=== PATIENT | female | born 1975 | race Caucasian/White ===

== ENCOUNTER 2022-11-23 09:34 | Emergency (ER) | payer OTHER, SELFPAY ==
--- NOTE | ~2022-11-23 | XR_ITS ---
EXAMINATION: XR CHEST CLINICAL INFORMATION: Shortness of breath x3 weeks COMPARISON: 07/30/2018 TECHNIQUE: Frontal view of the chest was obtained. FINDINGS: Lungs are markedly hypoexpanded. Allowing for this, no significant abnormality is probably present. Heart size normal. No CHF. No consolidations or pleural effusions. XR/XR chest 1V IMPRESSION: Hypoexpanded lungs. No acute intrathoracic disease.
[2022-11-23 09:37] VITALS: BP 123/52; PULSE 84; RESP 18; TEMP 36.1; O2SAT 96; BMI 34.9
--- NOTE | 2022-11-23 10:11 | ED.URI ---
HPI - URI/Sore Throat General Chief Complaint: Upper Respiratory Symptoms Stated Complaint: cough Time Seen by Provider: 11/23/22 09:56 Source: patient Mode of arrival: ambulatory Limitations: language barrier History of Present Illness HPI Narrative: 47-year-old female past medical history of asthma presents to the emergency department with complaints of a nonproductive cough and shortness of breath for 21 days. She states symptoms began roughly 3 weeks ago, at the same time both her children were diagnosed with the flu, and began with a 3 day fever. She states that she was not tested for the flu at that time. She states her symptoms are exacerbated by cold air and deep breathing. She denies any current fevers, chills, nausea, vomiting, chest pain, headache, or vision changes. She denies any difficulty swallowing or sore throat. MD elicited complaint: cough Pertinent past history: asthma Onset (ago): day(s) () Consistency: constant Severity: moderate Able to tolerate fluids by mouth: Yes Exacerbating factors: deep breaths and other (cold air) Related Data Previous Rx's Medication Instructions Recorded albuterol sulfate 90 mcg/actuation 1 inh inhalation Q4-6H PRN 11/23/22 breath activated powder inhaler shortness of breath #1 ea amoxicillin 875 mg-potassium 1 tab PO BID 5 days #10 tabs 11/23/22 clavulanate 125 mg tablet benzonatate 100 mg capsule 100 mg PO TID PRN cough #14 caps 11/23/22 Allergies Allergy/AdvReac Type Severity Reaction Status Date / Time No Known Allergies Allergy Unknown Verified 11/23/22 09:45 Review of Systems Review of Systems: In addition to documented HPI above, the additional ROS was obtained: Constitutional: No Weight loss, No Fever, No Chills ENT/Mouth: No Ear Pain, No Nasal Congestion, No Sinus Pain, No Hoarseness, No sore throat, No Rhinorrhea, No Swallowing Difficulty Cardiovascular: No Chest Pain Respiratory: No Sputum, No Wheezing Gastrointestinal: No Nausea, No Vomiting, No Diarrhea, No Constipation, No Abdominal pain Genitourinary: No Dysuria, No Urinary Frequency, No Hematuria, No Urinary Incontinence/retention, No Urgency, No Flank Pain Musculoskeletal: No joint pain, No Myalgias, No Joint Swelling Skin: No Skin Lesions, No rash Neuro: No Weakness, No Numbness, No Paresthesias Yes all other systems are reviewed and are negative [facility] Past Medical History Attestation statement: The following information was validated with the patient. Source: old records reviewed Social History Social History Advance Directives: No Advance Directives Information Provided: No Physical Exam Vital Signs: Vital Signs: Last Vital Signs Temp 97.0 F 11/23/22 09:37 Pulse 76 11/23/22 11:42 Resp 16 11/23/22 11:42 BP 117/63 11/23/22 11:42 Pulse Ox 98 11/23/22 11:42 O2 Del Method 11/23/22 11:42 BMI result Body Mass Index 34.9 Nursing notes and vital signs reviewed. GENERAL APPEARANCE: A&0 x 4, generally well appearing, no acute distress HENMT: Normal to inspection, atraumatic, face symmetrical. Normal external ears, nose, and oropharynx clear. EYE: PERRLA, EOM intact, structures appear normal NECK: Supple without lymphadenopathy. No stiffness or restricted ROM. CHEST: Normal to inspection HEART: Normal rate and regular rhythm, normal S1/S2, no M/R/G LUNGS: LS CTA, moving air well. Able to speak in complete sentences. No crackles, wheezes, or rhonchi auscultated ABDOMEN: Soft, nontender, nondistended. Normal bowel sounds noted BACK: No CVAT, no obvious deformity EXTREMITIES: Moving all extremities without difficulty. No cyanosis, clubbing, or edema. Normal capillary refill. NEUROLOGICAL: Alert and oriented, moving all 4 extremities with equal strength. CN not formally tested but appearing grossly intact. Observed to ambulate with normal gait. Cognition normal SKIN: Warm and dry without any lesions, rash, or visible sores PSYCH: Cooperative, normal affect, normal thought process Medical Decision Making Medical Decision Making MDM Narrative: 47-year-old female past medical history of asthma presents to the emergency department with complaints of a nonproductive cough and shortness of breath for 21 days. She states symptoms began roughly 3 weeks ago, at the same time both her children were diagnosed with the flu, and began with a 3 day fever. She states that she was not tested for the flu at that time. She states her symptoms are exacerbated by cold air and deep breathing. LS CTA, A&O x4, DEL ANGEL equally with good strength.? Serology negative for influenza, COVID.? Chest x-ray with hypoexpanded lungs, negative for intrathoracic disease.? History, physical, and diagnostics consistent with bronchitis.? Low suspicion for ACS, PE, pneumonia, sepsis. Patient is safe for discharge at this time with plan to manage symptoms the [id number] Tylenol, Motrin, and/or cough/cold medication for relief of symptoms. Plan to for 5 day course of Augmentin and benzonatate capsules for relief of symptoms. HPI, PE, diagnostics, and plan discussed with patient and family with no unanswered questions at this time.? Patient educated to return to the emergency department with chest pain, increased shortness of breath, worsening cough, fever despite taking antipyretics, or any other concerning emergent symptoms.? Recommended to follow-up with her primary care provider for further treatment and management. *Refer to Course for additional information on consultations, diagnostic interpretation, consultations, emergency department stay, conversations with patient and family, shared decision making with patient, and more information on medical decision making* Lab Data MDM Lab Attestation statement: I reviewed the patient's lab results. Serology negative for influenza A/B and Covid. Labs: Lab Results 11/23/22 11/23/22 Range/Units 10:16 10:16 COVID-19 (JANN) Negative (Negative) COVID-19 Clin Com See Note Influenza Type A (ELTON) Negative (Negative) Influenza Type B (ELTON) Negative (Negative) Influenza A & B Note See Note Radiology Impression Discussion of test interpretation with radiology: I have reviewed the radiologist's reading. Radiologist Impression: I have independently reviewed the chest x-ray show expanded lungs and no acute intrathoracic disease. EXAMINATION: XR CHEST CLINICAL INFORMATION: Shortness of breath x3 weeks COMPARISON: 07/30/2018 TECHNIQUE: Frontal view of the chest was obtained. FINDINGS: Lungs are markedly hypoexpanded. Allowing for this, no significant abnormality is probably present. Heart size normal. No CHF. No consolidations or pleural effusions. XR/XR chest 1V IMPRESSION: Hypoexpanded lungs. No acute intrathoracic disease. ? Dictated By: Magan Neri MD Signed By: <Electronically signed by Magan Neri MD in OV> 11/23/22 1126 DD/ 1013 TD/TT:? Construction Consultant: ESTELLA Discharge Plan Discharge Clinical Impression: Bronchitis Patient Disposition: Home, Self-Care Instructions: How to Use a Metered-Dose Inhaler (ED), Acute Bronchitis (ED), How Your Lungs Work (ED) Additional Instructions: Your throat and nasal swabs are negative for influenza and COVID.? Your chest x-ray is negative for pneumonia.? Your history, physical exam, and diagnostic exams are consistent with chronic bronchitis is you would have cough for greater than 3 weeks.? Plan is for a 5 day course of Augmentin, benzonatate capsules for cough, and a rescue inhaler for shortness of breath.? Please use these medications as prescribed. You are safe for discharge at this time with plan to manage symptoms the [id number] Tylenol, Motrin, and/or cough/cold medication for relief of symptoms. Plan to for 5 day course of Augmentin and benzonatate capsules for relief of symptoms. Please return to the emergency department with chest pain, increased shortness of breath, worsening cough, fever despite taking antipyretics, or any other concerning emergent symptoms.? Recommended to follow-up with her primary care provider for further treatment and management. Prescriptions: New amoxicillin-pot clavulanate 875-125 mg tablet 1 tab PO BID 5 Days Qty: 10 0RF benzonatate 100 mg capsule 100 mg PO TID PRN (Reason: cough) Qty: 14 0RF albuterol sulfate 90 mcg/actuation aerosol powdr breath activated 1 inh inhalation Q4-6H PRN (Reason: shortness of breath) Qty: 1 0RF Referrals: Sydney Aguilar MD [Primary Care Provider] - Interventions: ED Discharge Assessment Last Done: 11/23/22 12:19 Discharge Date/Time: 11/23/22 12:19 Print Language: Nepalese
--- NOTE | 2022-11-23 10:15 | PC.NURSE ---
Xray at bedside . patient aware of plan of care .
[2022-11-23 10:37] LABS: COVID-19 Test Negative (Negative); IDNOW Serial# 55D5AD1C
[2022-11-23 10:38] LABS: IDNOW Serial# 9DB6401D; Influenza A Negative (Negative); Influenza B2 Negative (Negative)
--- NOTE | 2022-11-23 11:30 | PC.NURSE ---
patients primary language Belarusian , patient assessed with use of medical manager . a/ox4 . heart rate regular at 80 beats per minute . breathing even and unlabored . lunges diminished throughout . dry non productive cough . Xray done at bedside . skin pink warm and dry . patient aware of plan of care .
[2022-11-23 11:42] VITALS: BP 117/63; PULSE 76; RESP 16; O2SAT 98
--- NOTE | 2022-11-23 12:17 | PC.NURSE ---
Patient a/ox4 . VSS . Went over discharge instructions as ordered by provider. patient to return to Ed if symptoms worsen no questions at this time .
== END 2022-11-23 12:19 | disposition home or self-care (01) ==
PROVIDERS: Nurse Practitioner Family; Emergency Provider Student in an Organized Health Care Education/Training Program; PCP Internal Medicine
DX: J40 Bronchitis, not specified as acute or chronic (principal); R05.9 Cough, unspecified; R06.02 Shortness of breath; Z20.828 Contact with and (suspected) exposure to other viral communicable diseases; Z20.822 Contact with and (suspected) exposure to COVID-19
CPT/HCPCS: 71045; 87502; 87635; 99283

== ENCOUNTER 2024-01-31 08:21 | Emergency (ER) | payer OTHER, SELFPAY ==
[2024-01-31 08:28] VITALS: BP 152/81; PULSE 85; RESP 16; TEMP 36.2; O2SAT 98; BMI 36.4
--- NOTE | 2024-01-31 09:30 | ED.EXTPRO ---
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 Patient states that she has had this pain for 2 months. Patient states that the pain is worse when she bends over. Patient states that the pain is better when her partner massages the area. Patient states that she was prescribed a muscle relaxer which helped but made her too sleepy. Patient denies any dizziness, lightheadedness, abdominal pain, nausea, vomiting, fever, chills, blurry vision, double vision, loss of vision, chest pain, difficulty breathing, shortness of breath, night sweats, pain with urination, increased urinary frequency, increased urinary urgency, blood in her urine or stool, syncope or a near syncopal episode, recent trauma or falls, bowel incontinence, bladder incontinence, bowel retention, bladder retention, or any other complaints at this time. Onset (ago): month(s) (2) Severity scale (1-10): 3 Quality: aching Radiation: none Relieving factors: medication Exacerbating factors: range of motion Associated symptoms: denies other symptoms Related Data Previous Rx's Medication Instructions Recorded albuterol sulfate 90 mcg/actuation 1 inh inhalation Q4-6H PRN 11/23/22 breath activated powder inhaler shortness of breath #1 ea amoxicillin 875 mg-potassium 1 tab PO BID 5 days #10 tabs 11/23/22 clavulanate 125 mg tablet benzonatate 100 mg capsule 100 mg PO TID PRN cough #14 caps 11/23/22 prednisone 20 mg tablet 20 mg PO DAILY 7 days #7 tabs 01/31/24 Allergies Allergy/AdvReac Type Severity Reaction Status Date / Time No Known Allergies Allergy Unknown Verified 11/23/22 09:45 Review of Systems Constitutional: Constitutional: Reports no additional constitutional complaints, Denies chills, Denies fever(s) and Denies night sweats Eyes: Eyes: Reports no additional eye complaints, Denies blurry vision, Denies change in vision, Denies diplopia, Denies eye discharge, Denies loss of vision and Denies eye pain ENT: Denies dizziness Cardiovascular: Cardiovascular: Reports no additional cardiovascular complaints, Denies chest pain, Denies lightheadedness, Denies Loss of Consciousness and Denies dyspnea Respiratory: Respiratory: Reports no additional respiratory complaints and Denies dyspnea Gastrointestinal: Gastrointestinal: Reports no additional gastrointestinal complaints, Denies abdominal pain, Denies melena, Denies hematochezia, Denies change in bowel habits and Denies change in stool character Genitourinary: Genitourinary: Denies hematuria, Denies urinary frequency, Denies dysuria, Denies urinary incontinence, Denies urinary hesitancy and Denies urinary urgency Musculoskeletal: Musculoskeletal: Reports no additional musculoskeletal complaints, Reports back pain, Denies numbness and Denies tingling Neurologic: Denies dizziness, Denies loss of vision, Denies numbness and Denies tingling Psychiatric: Psychiatric: Reports no additional psychiatric complaints Endocrine: Endocrine: Reports no additional endocrine complaints Hematologic/Lymphatic: Hematologic/Lymphatic: Reports no additional hematologic/lymphatic complaints Allergic/Immunologic: Allergic/Immunologic: Reports no additional allergic/immunologic complaints PMFSH Past Medical History Attestation statement: The following information was validated with the patient. Source: old records reviewed and nursing notes reviewed Social History Social History Advance Directives: No Advance Directives Information Provided: No Physical Exam Vital Signs: Vital Signs: Last Vital Signs Temp 97.2 F 01/31/24 08:28 Pulse 85 01/31/24 08:28 Resp 16 01/31/24 08:28 BP 152/81 H 01/31/24 08:28 Pulse Ox 98 01/31/24 08:28 O2 Del Method Room Air 01/31/24 08:28 BMI result Body Mass Index 36.4 Const: General: cooperative, no acute distress, alert and awake Nutritional Appearance: well nourished Orientation/consciousness: patient oriented x3 Limitations: no limitations HEENT: Head: Yes normal to inspection and Yes atraumatic Ears: hearing grossly normal bilaterally and external ears normal General nose exam: Normal external nose present, no nasal discharge noted and no epistaxis Face and sinus: Yes normal facial exam, No abrasion and No laceration Mouth: Normal oral and palatal mucosa present, no drooling and no muffled voice Eyes: General: appearance normal, both eyes and all related structures Periorbital: periorbital findings normal Eyelids: Yes eyelids normal Conjunctivae: conjunctivae normal Pupils: Equal, round and reactive pupils present EOM: EOMs intact bilaterally Neck: Neck: Yes normal visual inspection, Yes full ROM and Yes no lymphadenopathy Chest: Chest palpation & inspection: normal inspection of the chest Resp: Effort & Inspection: normal respiratory effort and able to speak in complete sentences GI: Inspection: Yes normal to inspection : General: Yes no CVA tenderness Back/Spine/Pelvis: Back: no CVA tenderness Cervical Spine: normal cervical lordosis and cervical ROM normal Thoracic/Lumbar Spine: thoraco-lumbar ROM normal Neuro: General: patient oriented x3 and moves all extremities Cranial nerves: Yes Equal, round and reactive pupils present Cognition (Neuro): normal cognition Motor exam (neuro): 5/5 motor strength present throughout Sensory Exam: Normal double simultaneous stimulation for sensation Coordination: qnpvyd-fr-avzj test normal Extrem: General: Yes normal to inspection, Yes full ROM and Yes capillary refill normal Psych: Appearance: grossly normal Mental Status: mental status grossly normal Affect: normal affect Attitude: cooperative Thought process: Normal thought process present Thought content: Normal thought content present Insight: Good insight present (Psych) Medical Decision Making Medical Decision Making MDM Narrative: Patient is a 48 year old assigned female at with no reported medical history presenting to the emergency department today with mid back pain x2 months. Patient's physical exam was unremarkable. I explained my physical exam findings to the patient. I answered all questions asked by the patient. I stressed the importance of the patient taking her medication as prescribed. I stressed the importance of the patient following up with her primary care provider. I stressed the importance of the patient returning to the emergency department immediately if her symptoms were to worsen or if she were to develop any dizziness, shortness of breath, difficulty breathing, chest pain, blurry vision, loss of vision, nausea, vomiting, abdominal pain, fever, chills, back pain, or any other complaints. Patient verbalized agreement and understanding with this treatment plan and discharge. Differential Diagnosis Differential Diagnoses: The differential diagnosis associated with the presentation includes Back pain Muscle strain Muscle spasm Admission/Observation Consideration of admission/observation: Escalation of care including admission/observation considered Patient would have been admitted to the hospital had her clinical presentation warranted hospital admission. Tests considered The following testing was considered but not selected: I considered imaging of the spine including an x-ray and/or a CT scan however, the patient's current clinical presentation does not warrant it. I discussed this with the patient who, via an rubber production machine operator, verbalized agreement and understanding. Prescription Management I considered prescription management with: Pain Medication (patient offered a different muscle relaxer than presently prescribed and declined.) and Other (patient prescribed prednisone.) Discharge Plan Discharge Clinical Impression: Back pain Patient Disposition: Home, Self-Care Instructions: Back Pain (ED) Additional Instructions: Follow up with your primary care provider and an orthopedic provider. Return to the emergency department immediately if your symptoms worsen or if you develop any dizziness, shortness of breath, difficulty breathing, chest pain, blurry vision, loss of vision, nausea, vomiting, abdominal pain, fever, chills, back pain, or any other complaints. Tavo un seguimiento con mir m?dico de cabecera y un traumat?logo. Acuda inmediatamente al servicio de urgencias si angelina s?ntomas empeoran o si presenta mareos, falta de aliento, dificultad para respirar, dolor tor?cico, visi?n borrosa, p?rdida de visi?n, n?useas, v?mitos, dolor abdominal, fiebre, escalofr?os, dolor de espalda o cualquier otra molestia. Prescriptions: New prednisone 20 mg tablet 20 mg PO DAILY 7 Days Qty: 7 0RF No Action amoxicillin-pot clavulanate 875-125 mg tablet 1 tab PO BID 5 Days Qty: 10 0RF benzonatate 100 mg capsule 100 mg PO TID PRN (Reason: cough) Qty: 14 0RF albuterol sulfate 90 mcg/actuation aerosol powdr breath activated 1 inh inhalation Q4-6H PRN (Reason: shortness of breath) Qty: 1 0RF Referrals: [facility] [place] [facility] [Provider Group] (Call to establish and follow up with an orthopedic provider. Llamar para establecer y hacer un seguimiento con un proveedor de ortopedia.) Sydney Aguilar MD [Primary Care Provider] - Print Language: Sammarinese
[2024-01-31 10:06] VITALS: BP 134/85; PULSE 72; RESP 20; TEMP 36.6; O2SAT 98
== END 2024-01-31 10:07 | disposition home or self-care (01) ==
PROVIDERS: Emergency Provider Emergency Medicine; PCP Internal Medicine
DX: M54.9 Dorsalgia, unspecified (principal)
CPT/HCPCS: 99282; 99283

== ENCOUNTER 2024-03-13 08:16 | Outpatient (AMB) | payer OTHER, SELFPAY ==
--- NOTE | 2024-03-13 08:25 | MHC.OFFVIS ---
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 Patient states that she has had this pain for 2 months. Patient states that the pain is worse when she bends over. Patient states that the pain is better when her partner massages the area. She was prescribed a muscle relaxer which helped but made her too sleepy. She was given Prednisone in the ED but she discontinued as this increased swelling of her extremities. River Expedition Guide Required: Yes Allergies No Known Allergies Allergy (Unknown, Verified 11/23/22 09:45) HPI Comments Details: New onset upper back/neck pain 2 months ago. Denies inciting injuries. Between shoulder blades and left upper trapezius. Tinglings both hands/fingers when sleeping. Tends to drop things. Back in 2019, she had shoulder fracture (?) from shovelling. Which she says healed. Still bothers her sometimes. History of fibromyalgia. Treatment done so far: massage helps tried prednisone, given in ER, discontinued due to side effects [facility] Medical History (Updated 03/13/24 @ 09:06 by Ryann Rowland MD) Ganglion cyst Numbness in both hands Myofascial pain Social History (Updated 03/13/24 @ 08:44 by Monae Jiménez CMA) Current occupational status: unemployed Review of Systems Const All systems reviewed & are unremarkable except as noted in HPI and below Physical Exam Vital Signs: BMI result Body Mass Index 36.4 Constitutional: Patient appears to be in no acute distress, well nourished and well developed. Patient was appropriately conversant and oriented. Good historian. MSK: Inspection reveals appropriate head and neck positioning. No pain with palpation over the neck musculature. Cervical ROM was full. Spurling's sign negative. Bilateral shoulder, elbow and wrist ROM WNL. No ligamentous laxity or crepitance. No increased effusion. No specific abnormalities or instability found on inspection and palpation of the spine and extremities. Negative carpal compression. Ganglion cyst on dorsal wrist, bilateral. Nontender. Strength is 5/5 in all muscle groups tested. No increased tone noted. Neurological: Neurologic examination of the upper and lower extremities was nonfocal with intact sensation, muscle stretch reflexes and without focal motor deficits . Groves?s negative bilaterally. Gait is non-antalgic without loss of balance. Results Reviewed Results Reviewed: I reviewed records from the following: ER notes Assessment & Plan Assessment & Plan (1) Myofascial pain: Code(s): M79.18 - Myalgia, other site Category: Medical (2) Numbness in both hands: Code(s): R20.0 - Anesthesia of skin Category: Medical (3) Ganglion cyst: Code(s): M67.40 - Ganglion, unspecified site Category: Medical Plan Suspect upper back pain is myofascial. Referring her to physical therapy. Discussed this this could be part of fibromyalgia history. Complaining of finger numbness at night. Trial wrist splints at night. We will schedule for EMG to rule out carpal tunnel. Incidental finding of ganglion cyst but nontender. Not related to upper back pain or finger numbness. Assessment and plan discussed with patient, and patient was agreeable. All questions were answered thoroughly. Ryann Rowland MD, SUSI Board Certified, [place] Board of [employer] Medicine and Rehabilitation (ABPMR) Board Certified, [place] Board of Electrodiagnostic Medicine (ABEM) Orders: Orders NE nerve conduction velocity Today Ryann Rowland MD R20.0 - Anesthesia of skin PT Evaluation and Treatment Today Ryann Rowland MD M79.18 - Myalgia, other site NE electromyogram (EMG) Today Ryann Rowland MD R20.0 - Anesthesia of skin Medications: Discontinued amoxicillin-pot clavulanate 875-125 mg Discontinued Reason: Patient no longer taking 1 tab PO BID 10 tabs 0RF 5 days Monae Jiménez CMA prednisone Discontinued Reason: Patient no longer taking 20 mg PO DAILY 7 tabs 0RF 7 days Monae Jiménez CMA Coding Level of Care Code New Pt Level 4 (84912) Diagnoses Myofascial pain M79.18 Numbness in both hands R20.0 Ganglion cyst M67.40
[2024-03-13 08:36] VITALS: BMI 36.4
== END 2024-03-13 09:56 | disposition home or self-care (01) ==
PROVIDERS: PCP Internal Medicine; Visit Provider Physical Medicine & Rehabilitation
DX: M79.18 Myalgia, other site (principal); R20.0 Anesthesia of skin; M67.40 Ganglion, unspecified site
CPT/HCPCS: 99204

== ENCOUNTER → 2024-03-13 08:16 | Outpatient (BNVA) | payer OTHER, SELFPAY | PROVIDERS: PCP Internal Medicine; Visit Provider Physical Medicine & Rehabilitation | DX: M79.18 Myalgia, other site (principal); M67.40 Ganglion, unspecified site; R20.0 Anesthesia of skin | CPT/HCPCS: 99202 ==

== ENCOUNTER 2024-04-05 09:59 | Outpatient (REF) | payer OTHER, SELFPAY | END 2024-04-05 10:00 | disposition home or self-care (01) | LOC: HO.NEURO 09:59 | PROVIDERS: PCP Internal Medicine; Visit Provider Physical Medicine & Rehabilitation | DX: Z13.89 Encounter for screening for other disorder (principal) ==